=== PATIENT | male | born 1955 | race Caucasian/White ===

== ENCOUNTER 2021-11-12 08:55 | Outpatient (REF) | payer OTHER, SELFPAY ==
[2021-11-12 11:40] LABS: Hemoglobin 16.5 g/dl (14.0-18.0); Mean Corpuscular HGB Conc 33.7 g/dl (31.0-36.0); Mean Corpuscular Hemoglobin 29.9 pg (27.0-33.0); Mean Corpuscular Volume 88.8 fL (80.0-98.0); Mean Platelet Volume 10.2 fL (9.4-12.4); Platelet Count 182 X10*3/uL (160-400); Red Blood Count 5.52 X10*6/uL (4.60-5.80); Red Cell Distribution Width 13.4 % (11.0-16.0); White Blood Count 3.9 X10*3/uL (4.8-10.8)
[2021-11-12 11:52] LABS: Alanine Aminotransferase 26 U/L (0-40); Albumin Level 4.6 g/dL (3.5-5.0); Alkaline Phosphatase 85 U/L (39-117); Anion Gap 11 (12-20); Aspartate Amino Transferase 27 U/L (5-37); Bilirubin Total 3.4 mg/dL (0.0-1.0); Blood Urea Nitrogen 12 mg/dL (9-16); Calcium 9.8 mg/dL (8.4-10.2); Carbon Dioxide 30 mmol/L (22-29); Chloride 104 mmol/L (96-108); Cholesterol 148 mg/dL; Estimated Glomerular Filt Rate > 60; Glucose Fasting 91 mg/dL (60-99); HDL Cholesterol 46 mg/dL; LDL Cholesterol Calculated 83 mg/dl; Potassium 4.5 mmol/L (3.3-5.1); Sodium 140 mmol/L (135-145); Total Protein 7.4 g/dL (6.5-8.0); Triglycerides 95 mg/dL
[2021-11-12 12:18] LABS: TSH reflex Free T4 3.27 uIU/mL (0.32-4.0)
== END 2021-11-12 08:56 | disposition home or self-care (01) ==
LOC: HO.HMGCLDS 08:55
PROVIDERS: Visit Provider Hospitalist
DX: Z00.00 Encounter for general adult medical examination without abnormal findings (principal)
CPT/HCPCS: 36415; 80053; 80061; 84443; 85027

== ENCOUNTER 2022-11-27 07:57 | Outpatient (REF) | payer MEDICARE, OTHER, SELFPAY ==
[2022-11-27 10:43] LABS: Hematocrit 36.9 % (42.0-52.0); Hemoglobin 12.4 g/dl (14.0-18.0); Mean Corpuscular HGB Conc 33.6 g/dl (31.0-36.0); Mean Corpuscular Hemoglobin 29.2 pg (27.0-33.0); Mean Corpuscular Volume 86.8 fL (80.0-98.0); Mean Platelet Volume 9.7 fL (9.4-12.4); Platelet Count 122 X10*3/uL (160-400); Red Blood Count 4.25 X10*6/uL (4.60-5.80); Red Cell Distribution Width 15.9 % (11.0-16.0)
[2022-11-27 10:44] LABS: NRBC Pct Auto 1.5 /100WBC (0.0-0.2)
[2022-11-27 10:59] LABS: Alanine Aminotransferase 14 U/L (0-40); Albumin Level 4.5 g/dL (3.5-5.0); Alkaline Phosphatase 85 U/L (39-117); Anion Gap 13 (12-20); Aspartate Amino Transferase 20 U/L (5-37); Bilirubin Total 2.5 mg/dL (0.0-1.0); Blood Urea Nitrogen 15 mg/dL (9-16); Calcium 9.2 mg/dL (8.4-10.2); Carbon Dioxide 28 mmol/L (22-29); Chloride 104 mmol/L (96-108); Estimated Glomerular Filt Rate > 60; Glucose Fasting 88 mg/dL (60-99); Potassium 4.1 mmol/L (3.3-5.1); Sodium 141 mmol/L (135-145); Total Protein 6.9 g/dL (6.5-8.0)
[2022-11-27 11:35] LABS: SLIDE REVIEW MANUAL DIFF
[2022-11-27 11:50] LABS: Atypical Lymph Absolute Manual 0.1 x10*3/uL; Atypical Lymphs Percent Manual 6 % (0-6); Band Neutrophils Percent 3 % (3-5); Eosinophils Percent Manual 1 % (0-4); Lymphocytes Absolute Manual 0.7 X10*3/uL (1.2-4.9); Lymphocytes Percent Manual 34 % (20-40); Monocytes Percent Manual 2 % (2-11); Neutrophils Absolute Manual 1.1 X10*3/uL (2.0-8.3); Neutrophils Percent Manual 54 % (45-73)
[2022-11-27 11:51] LABS: Nucleated Red Blood Cells 1 /100WBC (0-0)
[2022-11-27 11:53] LABS: Ovalocytes 1+ (5-14) /OIF; Polychromasia 1+ (0-2) /OIF; RBC Morphology NOTED; Schistocytes 1+ (0-2) /OIF; Tear Drop Cells 2+ (3-5) /OIF
[2022-11-27 12:00] LABS: WBC Morphology Comment DYSMORPHIC
[2022-11-27 12:03] LABS: Platelet Estimate SLIGHTLY DECREASED (NORMAL)
[2022-11-27 12:08] LABS: Platelet Morphology Comment NORMAL
== END 2022-11-27 07:58 | disposition home or self-care (01) ==
LOC: HO.10HDL 07:57
PROVIDERS: Visit Provider Nurse Practitioner Family
DX: R10.9 Unspecified abdominal pain (principal)
CPT/HCPCS: 36415; 80053; 85007; 85025; 85027

== ENCOUNTER 2022-12-04 15:07 | Outpatient (REF) | payer MEDICARE, OTHER, SELFPAY ==
[2022-12-04 17:45] LABS: Albumin Level 4.4 g/dL (3.5-5.0); Alkaline Phosphatase 85 U/L (39-117); Bilirubin Direct 0.4 mg/dL (0.0-0.5); Bilirubin Total 2.4 mg/dL (0.0-1.0); C Reactive Protein 0.48 mg/dL (< or = 0.50)
[2022-12-04 18:01] LABS: TSH reflex Free T4 3.37 uIU/mL (0.32-4.0)
[2022-12-07 17:44] LABS: Immunoglobulin A 178 mg/dL (70-320)
[2022-12-07 18:38] LABS: Transglutaminase IgA <1.0 U/mL
[2022-12-11 23:23] LABS: Calprotectin, Fecal 80 mcg/g
== END 2022-12-04 15:08 | disposition home or self-care (01) ==
LOC: HO.LAB 15:07
PROVIDERS: PCP Hospitalist; Visit Provider Internal Medicine
DX: R10.9 Unspecified abdominal pain (principal); R19.7 Diarrhea, unspecified; R17 Unspecified jaundice
CPT/HCPCS: 36415; 82040; 82247; 82248; 82784; 83993; 84075; 84443; 86140; 86364; 99202

== ENCOUNTER 2023-02-11 06:47 | Day surgery (SDC) | payer MEDICARE, OTHER, SELFPAY ==
[2023-02-09 11:09] VITALS: BMI 24.1
--- NOTE | 2023-02-10 08:54 | HO.ANESPROP2 ---
Documented by User: Palma Ramirez NP 02/10/23 08:55 HPI - Anesthesia Eval Consult details Narrative: 67yo M for Upper Endoscopy [facility] Active Problems Active Problems: All Active Problems (Updated 12/04/22 @ 15:42 by Kim Holman MD) Diarrhea (Acute) Anemia (Acute) Abdominal pain (Acute) Elevated bilirubin (Acute) Normal physical exam (Acute) Hairy cell leukemia (Acute) Past Medical History Medical History Hairy cell leukemia Family History Family History Mother Diabetes Surgical History Surgical History Hx of colonoscopy Social History Social History Household Members: Spouse Housing: House Alcohol intake: never Patient Tobacco Use Status: Never used Tobacco Current occupational status: employed Current occupation: [employer] Allergies Allergy/AdvReac Type Severity Reaction Status Date / Time No Known Allergies Allergy Verified 12/04/22 15:31 Exam Exam Date and Time: February 10, 2023 0854 Height,Weight and Vital Signs: Height 5 ft 8 in Weight 71.979 kg Pertinent Lab Results Pertinent Lab Results: Laboratory Tests 11/27/22 11/27/22 08:00 08:00 WBC 2.0 L Hgb 12.4 L D Hct 36.9 L D Plt Count 122 L D Sodium 141 Potassium 4.1 Chloride 104 Carbon Dioxide 28 BUN 15 Creatinine 0.77 Assessment and Plan Assessment Anesthesia Assessment: Chart Reviewed Documented by User: Kelsey Alcazar MD 02/11/23 14:26 PMFSH Past Medical History Medical History Hairy cell leukemia Family History Family History Mother Diabetes Family history of problems with anesthesia: No Surgical History Surgical History Hx of colonoscopy History of Problems with Anesthesia: No Social History Social History Household Members: Spouse Housing: House Alcohol intake: never Patient Tobacco Use Status: Never used Tobacco Current occupational status: employed Current occupation: [employer] Allergies Allergy/AdvReac Type Severity Reaction Status Date / Time No Known Allergies Allergy Verified 12/04/22 15:31 Exam Airway Mallampati Class: II TM Dist: >3cm Neck ROM: Full Loose/Missing/Broken Teeth: Yes and Lower Heart: rr Lungs: cta Assessment and Plan Assessment Anesthesia Assessment: Anesthesia Plan Discussed Final Anesthetic Review Family History of Problems with Anesthesia: No History of Problems with Anesthesia: No NPO: Yes ASA Class: III Final Preanesthetic Review: No Changes in Pt Med Stat, Meds/Allgs Chart Reviewed, Consent Obtained/Reviewed and Anes Risks/Benef Reviewed Patient Risk: Low Procedure Risk: Low Anesthetic Plan Anesthetic Plan: MAC: Disposition: Standard PACU
[2023-02-11 07:08] VITALS: BP 134/62; PULSE 69; RESP 18; TEMP 36.2; O2SAT 100
[2023-02-11 07:09] VITALS: BMI 25.8
[2023-02-11] MEDS: Lactated Ringers 1,000 ML 100 ML IVCONT (07:31)
--- NOTE | 2023-02-11 07:43 | MHC.SHP ---
Pre-Procedural Eval Section A Date of Service: 02/11/23 Section B Chief Complaint: ABd pain Details of Present Illness: Medical History Hairy cell leukemia Surgical History Hx of colonoscopy Family History Mother Diabetes Present Medications: see Short Stay Collaborative assessment Allergies: Allergies Allergy/AdvReac Type Severity Reaction Status Date / Time No Known Allergies Allergy Verified 12/04/22 15:31 Review of Systems Review of Systems Comment: Ten point ROS unchanged from before Exam Exam Comment: Gen appear: No acute distress HEENT: no icterus Chest: No overt resp distress Abd: soft, nontender, nondistended Psych: Stable affect, answering questions appropriately Neuro: A/Ox3 noted to move all extremities spontaneously Ext: no peripheral edema Plan Diagnosis/Plan: Unchanged I have reviewed the history and physical and performed a pertinent physical examination on my patient. No changes have occurred unless specified. Time Spent With Patient Time: Total time managing care of this patient today ____ minutes.
--- NOTE | 2023-02-11 08:14 | P.OP_ITS ---
Operative Note Operative Note Date of Service: 02/11/23 Narrative: Procedure: Esophagogastroduodenoscopy Endoscopist: Kim Holman MD Indication: Abd pain Anesthesia Provider: Dr Kelsey Alcazar Anesthesia Type: MAC ?? EGD Procedure:?? The procedure, indications, preparation and potential complications were reviewed with the patient, who indicated understanding and gave written informed consent to proceed. entry level installation technician assisted with consent. A physical exam was performed. The endoscope was introduced through the mouth, and advanced to the second part of duodenum. The mucosa was carefully examined on slow withdrawal of the endoscope. The patient tolerated the procedure well. There were no immediate complications.? ? EGD Findings:? * Esophagus:? Normal mucosa noted in the entire esophagus. The Z line was at 38 cm. * Stomach:? Abnormal mucosa in the body of the stomach along greater curvature. Targeted biopsies were obtained from this area using jumbo cold forceps. Random gastric biopsies were taken to rule out H Pylori infection. * Duodenum:? Normal mucosa was noted in the whole of the examined duodenum. Cold forceps biopsies were taken from duodenal bulb and second portion of the duodenum to rule out celiac disease. ? EGD Impressions:? * Normal esophagus * Abnormal stomach mucosa (biopsy) * Normal duodenum (biopsy) ?? Recommendations:?? * Follow biopsy results. Our office will call or send a letter with results within 7-10 days. * Pt also appears jaundiced on exam today. Liver panel ordered. * We will also clarify the status of hairy cell leukemia with the daughter td given abnormal smear 3 months ago. Above has been reviewed with the patient.
[2023-02-11 08:59] VITALS: BP 121/76; PULSE 67; RESP 16; TEMP 36.1; O2SAT 98
[2023-02-11 09:14] VITALS: BP 132/78; PULSE 64; RESP 16; TEMP 36.6; O2SAT 97
[2023-02-11 09:49] LABS: Alanine Aminotransferase 19 U/L (0-40); Albumin Level 3.7 g/dL (3.5-5.0); Alkaline Phosphatase 71 U/L (39-117); Aspartate Amino Transferase 23 U/L (5-37); Bilirubin Direct 0.6 mg/dL (0.0-0.5); Bilirubin Total 2.5 mg/dL (0.0-1.0); Total Protein 5.6 g/dL (6.5-8.0)
== END 2023-02-11 09:35 | disposition home or self-care (01) ==
PROVIDERS: PCP Hospitalist; Visit Provider Internal Medicine
PROC: 0DJ08ZZ Inspection of Upper Intestinal Tract, Via Natural or Artificial Opening Endoscopic (ICD-10-PCS; CPT 43235; principal; 2023-02-11 08:20)
DX: R10.9 Unspecified abdominal pain (principal); K29.70 Gastritis, unspecified, without bleeding; B96.81 Helicobacter pylori [H. pylori] as the cause of diseases classified elsewhere; C91.40 Hairy cell leukemia not having achieved remission; D64.9 Anemia, unspecified; R19.7 Diarrhea, unspecified; E80.7 Disorder of bilirubin metabolism, unspecified; Z79.899 Other long term (current) drug therapy
CPT/HCPCS: 43239; 36415; 80076; 88305; 88342

== ENCOUNTER → 2023-03-03 14:58 | Outpatient (BNVA) | payer MEDICARE, OTHER, SELFPAY | PROVIDERS: Visit Provider Internal Medicine | DX: R10.9 Unspecified abdominal pain (principal); Z98.890 Other specified postprocedural states | CPT/HCPCS: 99212 ==

== ENCOUNTER 2024-09-19 09:56 | Outpatient (REF) | payer MEDICARE, OTHER, SELFPAY | END 2024-09-19 09:57 | disposition home or self-care (01) | LOC: HO.BBR 09:56 | PROVIDERS: PCP Family Medicine Geriatric Medicine; Visit Provider Internal Medicine | DX: D45 Polycythemia vera (principal) | CPT/HCPCS: 85014; 85018; 99195 ==

== ENCOUNTER 2024-12-20 09:58 | Outpatient (REF) | payer MEDICARE, SELFPAY ==
--- OUTSIDE RECORDS SUMMARY | 2024-12-20 11:25 | XMS_ITS | Clinical Summary ---
Author Organization [facility] Address [address] [place] [id number] Care Team Providers Care Rubber Press Tender Name Role Phone Leila Rousseau Primary Care Provider [phone] Allergies No known active allergies Medications Medication Sig Dispensed Refills Start Date End Date Status ibuprofen 600 MG tablet Take 1 tablet (600 mg total) by mouth 3 (three) times a day as needed. 0 03/29/2022 Active albuterol 108 (90 Base) MCG/ACT inhaler Inhale 2 puffs into the lungs every 6 (six) hours as needed for wheezing. 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 not having achieved remissio n 03/28/2019 Pancytopenia 12/30/2018 Hyperbilirubinemia 12/30/2018 Anemia complicating neoplastic disease 9 Social History Tobacco Use Types Packs/Day Years Used Date Smoking Tobacco: Never Smokeless Tobacco: Never Alcohol Use Standard Drinks/Week Comments Yes 0 (1 standard drink = 0.6 oz pur e alcohol) Socially Sex and Gender Information Value Date Recorded Sex Assigned at Male 08/11/2023 4:03 PM EST Gender Identity Not on file Sexual Orientation Not on file Job Start Date Occupation Industry Not on file Not on file Not on file Last Filed Vital Signs Vital Sign Reading Time Taken Comments Blood Pressure 132/70 12/23/2023 9:20 AM EDT Pulse 58 12/23/2023 9:20 AM EDT Temperature 36.4 ??C (97.5 ??F) 12/23/2023 9:20 AM ED T Respiratory Rate 18 09/24/2023 8:00 AM EST Oxygen Saturation 98% 12/23/2023 9:20 AM EDT Inhaled Oxygen Concentration - - Weight 70.9 kg (156 lb 6.4 oz) 12/23/2023 9:20 A M EDT Height 172.7 cm (5' 8 ) 12/23/2023 9:20 AM EDT Body Mass Index 23.78 12/23/2023 9:20 AM EDT Plan of Treatment Health Maintenance Due Date Last Done Comments Hepatitis C Screening 1956 COVID-19 Vaccine (#1) 1961 Pneumococcal Vaccine (1 of 2 - PCV) 1962 Depression Screening 1968 Preventative Health Evaluation 1974 DTap / Tdap / Td (1 - Tdap) 12/08/1975 Shingrix-Zoster Vaccine (1 o f 2) 12/08/1975 Colon Cancer Screening (Colonoscopy) 2001 RSV Adult > 60+ Yrs or (1 - Risk 60-74 years 1-dose series) 2016 Fall Risk Assessment 2021 Influenza Vaccine (#1) 2024 4, 06/06/2010 Hepatitis B Vaccines Aged Out No long er eligible based on patient's age to complete this topic RSV Ped < 20 months Aged Out No longe r eligible based on patient's age to complete this topic Care Teams Rubber Press Tender Relationship Specialty Start Date End Date Leila Rousseau DO [address] [address] PCP - General Family Medicine 12/15/18
--- OUTSIDE RECORDS SUMMARY | 2024-12-20 11:25 | XMS_ITS | Clinical Summary ---
Author Organization [facility] Address [address] [place] [address] Phone Care Team Providers Care [employer] Name Role Phone Leila Rousseau Primary Care Provider Allergies No known active allergies Medications albuterol HFA (PROAIR HFA ; PROVENTIL HFA ; VENTOLIN HFA) 90 mcg/actuation inhaler Inhale 2 puffs by mouth every 6 (six) hours if needed for wheezing. 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, in carline ssion ([facility] V24, [facility] V28) 03/28/2019 Anemia complicating neoplastic disease 9 Hyperbilirubinemia 12/30/2018 Pancytopenia ([facility] V24, [facility] V28) 12/31/19 19 Social History Tobacco Use Types Packs/Day Years Used Date Smoking Tobacco: Never Smokeless Tobacco: Never Tobacco Cessation:Counseling Given: Not Answered Alcohol Use Standard Drinks/Week Comments Yes 0 (1 standard drink = 0.6 oz pur e alcohol) Sex and Gender Information Value Date Recorded Sex Assigned at Not on file Legal Sex Male 10:22 PM EST Gender Identity Not on file Sexual Orientation Not on file Obstetrics History Last Filed Vital Signs Vital Sign Reading Time Taken Comments Blood Pressure 129/72 08/28/2024 3:07 PM EST Pulse 64 08/28/2024 3:07 PM EST Temperature 36.3 ??C (97.4 ??F) 08/28/2024 3:07 PM ES T Respiratory Rate - - Oxygen Saturation 99% 08/28/2024 3:07 PM EST Inhaled Oxygen Concentration - - Weight 70.6 kg (155 lb 9.6 oz) 08/28/2024 3:07 P M EST Height 172.7 cm (5' 8 ) 12/23/2023 9:20 AM EDT Body Mass Index 23.66 12/23/2023 9:20 AM EDT Plan of Treatment Upcoming Encounters Date Type Department Care Team (Late st Contact Info) Description 01/04/2025 3:30 PM EDT Office Visit [facility] Hematology Oncology [address] [place] [address] Delmi-Shameka Guerra MD [address] [place] [address] Health Maintenance Due Date Last Done Comments Hepatitis A Vaccines (1 of 2 - Risk 2-dose series) 12/08/1975 Pneumococcal Vaccine: 50+ Years (1 of 2 - PCV) 12/08/1975 Zoster Vaccines (1 of 2) 12/08/1975 DTaP,Tdap,and Td Vaccines (2 - Td or Tdap) 09/18/2020 09/18/2010 Cholesterol Screening (Lipid Panel) 08/13/2022 Colorectal Cancer Screening: Colonoscopy 08/13/2022 Depression Screening 08/13/2022 Falls Risk Assessment 08/13/2022 Hepatitis C Screening 08/13/2022 Medicare Annual Wellness Visit 08/13/2022 Social Influencers of Health Screening 08/13/2022 COVID-19 Vaccine ( season) 2024 09/17/2021, 01/07/2021, 12/17/2020 RSV Immunization Adult Patients (1 - 1-dose 75+ series) 12/08/2031 Influenza Vaccine Completed 09/07/2024, , 10/25/2022, Additional history exists HIB Vaccines Aged Out No longer eligi ble based on patient's age to complete this topic HPV Vaccines Aged Out No longer eligi ble based on patient's age to complete this topic Hepatitis B Vaccines Aged Out No long er eligible based on patient's age to complete this topic IPV Vaccines Aged Out No longer eligi ble based on patient's age to complete this topic MMR Vaccines Aged Out No longer eligi ble based on patient's age to complete this topic Meningococcal ACWY Vaccine Aged Out N o longer eligible based on patient's age to complete this topic Meningococcal B Vaccine Aged Out No l onger eligible based on patient's age to complete this topic RSV Immunization Patients Under 20 months Aged Out No longer eligible based on patient's age to complete this topic Varicella Vaccines Aged Out No longer eligible based on patient's age to complete this topic Procedures Procedure Name Priority Date/Time Associated Diagnosis Comments CBC WITH AUTO DIFFERENTIAL Routine 12/18/2024 1:31 PM EDT Hairy cell leukemia, in remission (CMS/HCC V24, CMS/HCC V28) LACTATE DEHYDROGENASE Routine 12/18/2024 1:31 PM EDT Hairy cell leukemia, in remission (CMS/HCC V24, CMS/HCC V28) CBC AND DIFFERENTIAL Routine 12/18/2024 1:31 PM EDT Hairy cell leukemia, in remission (CMS/HCC V24, CMS/HCC V28) COMPREHENSIVE METABOLIC PANEL Routine 12/18/2024 1:31 PM EDT Hairy cell leukemia, in remission (CMS/HCC V24, CMS/HCC V28) PROSTATE SPECIFIC ANTIGEN DIAGNOSTIC Routine 12/18/2024 1:31 PM EDT Elevated PSA from Last 3 Months Results * Prostate specific antigen diagnostic (12/18/2024 1:31 PM EDT) PSA 1.60 0.00 - 4.00 ng/mL LAB CHEMISTRY METHOD 12/18/2024 5:57 PM EDT [facility] Blood Venous blood specimen / Unknown Venipuncture / Unknown 12/18/2024 1:31 PM EDT 12/18/2024 4:37 PM EDT Narrative [facility] - 12/18/2024 5:57 PM EDT The Siemens Advia Centaur Chemiluminescent Immunoassay is used. Results obtained with different assay methods or kits cannot be used interchangeably. Results cannot be interpreted as absolute evidence of the presence or absence of malignant disease. us Shameka oDver MD LAB BLOOD ORDERABLE S Final Result [facility] [address] [place] [address], * (ABNORMAL) CBC auto differential (12/18/2024 1:31 PM EDT) WBC 6.2 4.8 - 10.8 K/mcL LAB HEMETOLOGY METHOD 12/18/2024 4:54 PM EDT [facility] RBC 5.90(H) 4.50 - 5.50 M/mcL LAB HEMETOLOGY METHOD 12/18/2024 4:54 PM EDT [facility] Hemoglobin 17.4 13.5 - 17.5 g/dL LAB HEMETOLOGY METHOD 12/18/2024 4:54 PM EDT [facility] Hematocrit 52.4 42.0 - 54.0 % LAB HEMETOLOGY METHOD 12/18/2024 4:54 PM EDT [facility] MCV 89.0 79.0 - 98.0 FL LAB HEMETOLOGY METHOD 12/18/2024 4:54 PM EDT [facility] MCH 29.5 27.0 - 32.0 pcg LAB HEMETOLOGY METHOD 12/18/2024 4:54 PM EDT [facility] MCHC 33.2 32.0 - 37.0 g/dL LAB HEMETOLOGY METHOD 12/18/2024 4:54 PM EDT [facility] RDW 13.2 11.0 - 15.0 % LAB HEMETOLOGY METHOD 12/18/2024 4:54 PM EDT [facility] Platelets 255 130 - 400 K/mcL LAB [facility]OLOGY [facility] MPV 10.4 7.0 - 11.0 FL LAB HEMETOLOGY METHOD [facility]24 [facility] NRBC 0.0 <1.0 % LAB HEMETOLOGY METHOD 12/18/2024 4:54 PM EDT [facility] NRBC Absolute 0.00 <0.10 K/mcL LAB HEMETOLOGY METHOD [facility]24 4[facility] Neutrophils Relative 68.2 % LAB HEMETOLOGY METHOD 12/18/2024 4:54 PM [facility] Lymphocytes Relative 18.8 % LAB HEMETOLOGY METHOD 12/18/2024 4:54 PM EDT [facility] Monocytes Relative 8.5 % LAB HEMETOLOGY METHOD 12/18[facility]2024 4:[facility] Eosinophils Relative 2.7 % LAB HEMETOLOGY METHOD 12/18/2024 4:54 PM [facility] Basophils Relative 1.3 % LAB HEMETOLOGY METHOD 12/18/2024 4:54 PM [facility] Immature Granulocytes Relative 0.5 % LAB HEMETOLOGY METHOD [facility]2024 4:[facility] Neutrophils Absolute 4.25 1.50 - 7.00 K/mcL LAB HEMETOLOGY METHOD 12/18/2024 4:[facility] Lymphocytes Absolute 1.17 1.00 - 5.00 K/mcL LAB HEMETOLOGY METHOD 12/18/2024 4:[facility] Monocytes Absolute 0.53 0.20 - 1.00 K/mcL LAB HEMETOLOGY METHOD 12/18/2024 4:54 PM EDT [facility] Eosinophils Absolute 0.17 0.00 - 0.50 K/[facility] LAB HEMETOLOGY METHOD 12/18/2024 4:54 PM EDT [facility] Basophils Absolute 0.08 0.00 - 0.20 K/[facility] LAB HEMETOLOGY METHOD 12/18/2024 4:54 PM EDT [facility] Immature Granulocytes Absolute 0.03 0.00 - 0.03 /[facility] LAB HEMETOLOGY METHOD 12/18/2024 4:54 PM EDT [facility] Blood Venous blood specimen / Unknown Venipuncture / Unknown 12/18/2024 1:31 PM EDT 12/18/2024 4:37 PM EDT us Shameka Dover MD LAB BLOOD ORDERABLE S Final Result Performing Organization Address [facility]/ZIP Co de Phone Number [facility] [address] [place] [address], [place] [phone] * Lactate dehydrogenase (12/18/2024 1:31 PM EDT) [facility] LDH 181 120 - 246 unit/L LAB CHEMISTRY METHOD 12/18/2024 5:26 PM EDT [facility] Blood Venous blood specimen / Unknown Venipuncture / Unknown 12/18/2024 1:31 PM EDT 12/18/2024 4:37 PM EDT us Shameka Dover MD LAB BLOOD ORDERABLE S Final Result Performing Organization Address City/[facility]/ZIP Co de Phone Number [facility] [address] [place] [address], [place] [phone] * (ABNORMAL) Comprehensive metabolic panel (12/18/2024 1:31 PM EDT) Sodium 139 133 - 145 mmol/L LAB CHEMISTRY METHOD 12/18/2024 5:26 PM [facility] Potassium 4.2 3.5 - 5.5 mmol/L LAB CHEMISTRY METHOD 12/18/2024 5:26 PM [facility] Chloride 103 96 - 110 mmol/L LAB CHEMISTRY METHOD 12/18/2024 5:26 PM [facility] CO2 31 21 - 32 mmol/L LAB CHEMISTRY METHOD 12/18/2024 5:26 PM [facility] Anion Gap 5 3 - 11 LAB CHEMISTRY METHOD 12/18/2024 5:26 PM [facility] Glucose 96 70 - 100 mg/dL LAB CHEMISTRY METHOD 12/18/2024 5:26 PM [facility] BUN 11 5 - 25 mg/dL LAB CHEMISTRY METHOD 12/18/2024 5:26 PM [facility] Creatinine 0.74 0.70 - 1.30 mg/dL LAB CHEMISTRY METHOD 12/18/2024 5:26 PM [facility] eGFR 99 >=60 mL/min/1. 73m2 LAB CHEMISTRY METHOD 12/18/2024 5:26 PM [facility] Comment:Calculation based on the??Chronic Kidney Disease Epidemiology Collaboration (CKD-EPI) equation refit??without adjustment for race. BUN/Creatinine Ratio 14.9 LAB CHEMISTRY METHOD 12/18/2024 5:26 PM [facility] Calcium 9.7 8.5 - 10.5 mg/dL LAB CHEMISTRY METHOD 12/18/2024 5:26 PM [facility] AST (SGOT) 23 10 - 42 unit/L LAB CHEMISTRY METHOD 12/18/2024 5:26 PM [facility] ALT (SGPT) 25 10 - 60 unit/L LAB CHEMISTRY METHOD 12/18/2024 5:26 PM [facility] Alkaline Phosphatase 125(H) 42 - 121 unit/L LAB CHEMISTRY METHOD 12/18/2024 5:26 PM EDT [facility] Total Protein 7.1 6.0 - 8.0 g/dL LAB CHEMISTRY METHOD 12/18/2024 5:26 PM EDT [facility] Albumin 4.2 3.2 - 5.0 g/dL LAB CHEMISTRY METHOD 12/18/2024 5:26 PM EDT [facility] Total Bilirubin 2.8(H) 0.0 - 1.4 mg/dL LAB CHEMISTRY METHOD 12/18/2024 5:26 PM EDT [facility] Blood Venous blood specimen / Unknown Venipuncture / Unknown 12/18/2024 1:31 PM EDT 12/18/2024 4:37 PM EDT Subramrohan Dover MD LAB BLOOD ORDERABLE S Final Result [facility] [address] [place] [address], from Last 3 Months Insurance [employer] MED[employer]ARE Care Teams [employer] Relationship Specialty Start Date End Date Leila Rousseau DO [address] [place], [place] PCP - General Family Medicine 12/15/18
--- OUTSIDE RECORDS SUMMARY | 2024-12-20 11:25 | XMS_ITS ---
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 Past Plans ONCOLOGY TREATMENT Plan Name Start Date Discontinue Date Treatment Medications Discontinue Reason Plan Provider Cycles [facility] OP RITUXIMAB (IV/SC) WEEKLY X4 023 11/10/2023 acetaminophen (TYLENOL)albuterol (PROVENTIL)dexamethasone (DECADRON) IVPB in 50 mLdiphenhydrAMINE (BENADRYL)EPINEPHrinefam otidine (PF) (PEPCID)hydrocortisone (SOLU-CORTEF) IVmeperidine (DEMEROL) 25 MG/MLriTUXimab-pvvr (RUXIENCE) infusion (Outpatient record)Saline Flush 0.9 %sodium chloride (NS) 0.9 %sodium chloride 0.9% bolus (NS) Therapy Complete Shameka Amado MD 2 of 2 cycles started [facility] OP CLADRIBINE (2h infusion) x 5 days 023 07/16/2023 albuterol (PROVENTIL)cladribine (LEUSTATIN) chemo infusiondiphenhydrAMINE (BENADRYL)EPINEPHrineEPI NEPHrine 0.3 MG/0.3MLfamotidine (PF) (PEPCID)hydrocortisone (SOLU-CORTEF) IVHydrocortisone Sod Suc (PF) (Solu-CORTEF)meperidine (DEMEROL) 25 MG/MLSaline Flush 0.9 %sodium chloride (NS) 0.9 %sodium chloride 0.9% bolus (NS) Therapy Complete Shameka Amado MD 1 of 1 cycle started Radiation Treatments * No radiation treatments are documented for this patient in [facility]. Treatments may have been administered in another system.
== END 2024-12-20 09:59 | disposition home or self-care (01) ==
LOC: HO.BBR 09:58
PROVIDERS: Visit Provider Internal Medicine
DX: D45 Polycythemia vera (principal)
CPT/HCPCS: 85014; 85018; 99195

== ENCOUNTER 2025-03-06 12:52 | Outpatient (REF) | payer MEDICARE, SELFPAY ==
--- OUTSIDE RECORDS SUMMARY | 2025-03-06 13:50 | XMS_ITS | Clinical Summary ---
Author Organization [facility] Address [address] [place] [id number] Care Team Providers Care Religious Education Director Name Role Phone Leila Rousseau Primary Care Provider Allergies No known active allergies Medications Medication [...] 58 12/23/2023 9:20 AM EDT Temperature 36.4 C (97.5 F) 12/23/2023 9:20 AM EDT Respiratory Rate 18 09/24/2023 8:00 AM EST [...] 2016 Fall Risk Assessment 2021 Influenza Vaccine (Season Ended) 2025 07/07/2014, 06/06/2010 Hepatitis B Vaccines Aged Out No long er eligible based on patient's age to complete this topic RSV Ped < 20 months Aged Out No longe r eligible based on patient's age to complete this topic Care Teams Religious Education Director Relationship Specialty Start Date End Date Leila Rousseau DO [address] [id number] PCP - General Family Medicine 12/15/18
== END 2025-03-06 12:53 | disposition home or self-care (01) ==
LOC: HO.BBR 12:52
PROVIDERS: PCP Family Medicine Geriatric Medicine; Visit Provider Internal Medicine
DX: D45 Polycythemia vera (principal)
CPT/HCPCS: 85018; 99195

== ENCOUNTER 2025-05-08 10:03 | Outpatient (REF) | payer MEDICARE, SELFPAY ==
--- OUTSIDE RECORDS SUMMARY | 2025-05-08 11:25 | XMS_ITS ---
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 Past Plans ONCOLOGY TREATMENT Plan Name Start Date Discontinue Date Treatment Medications Discontinue Reason Plan Provider Cycles [facility] OP RITUXIMAB (IV/SC) WEEKLY X4 023 11/10/2023 acetaminophen (TYLENOL)albuterol (PROVENTIL)dexamethasone (DECADRON) IVPB in 50 mLdiphenhydrAMINE (BENADRYL)EPINEPHrinefam otidine (PF) (PEPCID)hydrocortisone (SOLU-CORTEF) IVmeperidine (DEMEROL) 25 MG/MLriTUXimab-pvvr (RUXIENCE) infusion (Outpatient record)Saline Flush 0.9 %sodium chloride (NS) 0.9 %sodium chloride 0.9% bolus (NS) Therapy Complete Shameka Amado MD 2 of 2 cycles started [facility] OP CLADRIBINE (2h infusion) x 5 days 023 07/16/2023 albuterol (PROVENTIL)cladribine (LEUSTATIN) chemo infusiondiphenhydrAMINE (BENADRYL)EPINEPHrineEPI NEPHrine 0.3 MG/0.3MLfamotidine (PF) (PEPCID)hydrocortisone (SOLU-CORTEF) IVHydrocortisone Sod Suc (PF) (Solu-CORTEF)meperidine (DEMEROL) 25 MG/MLSaline Flush 0.9 %sodium chloride (NS) 0.9 %sodium chloride 0.9% bolus (NS) Therapy Complete Shameka Amado MD 1 of 1 cycle started Radiation Treatments * No radiation treatments are documented for this patient in [facility]. Treatments may have been administered in another system.
--- OUTSIDE RECORDS SUMMARY | 2025-05-08 11:25 | XMS_ITS | Clinical Summary ---
Author Organization [facility] Address [address] [place] [address] Phone Care Team Providers Care Package Checker Name Role Phone RousseauLeila Primary Care Provider Allergies No known active [...] 05/18/2019 Hairy cell leukemia, in carline ssion ([facility] V24, [facility] V28) 03/28/2019 Anemia complicating neoplastic disease 9 Hyperbilirubinemia 12/30/2018 Pancytopenia ([facility] V24, [facility] V28) 12/31/19 19 Encounters Date Type Department Care Team Description 04/09/2025 3:00 PM EDT Consult Gastroenterology [facility] 175 [facility] [address] [phone] Guadalupe Alvarado NP Epigastric abdominal pain (Primary Dx); Abdominal bloating; History of colon polyps 04/09/2025 Telephone Gastroenterology [facility] 175 [facility] 175 [facility] [address] [place] [phone] Guadalupe Alvarado NP from Last 3 Months Social History Tobacco Use Types Packs/Day Years [...] Sign Reading Time Taken Comments Blood Pressure 136/70 04/09/2025 2:58 PM EDT Pulse 71 04/09/2025 2:58 PM EDT Temperature 36.2 C (97.2 F) 01/04/2025 3:32 PM EDT Respiratory Rate - - Oxygen Saturation 96% 04/09/2025 2:58 PM EDT Inhaled Oxygen Concentration - - Weight 70.9 kg (156 lb 6.4 oz) 04/09/2025 2:58 P M EDT Height 175.3 cm (5' 9 ) 04/09/2025 2:58 PM EDT Body Mass Index 23.1 04/09/2025 2:58 PM EDT Plan of Treatment Upcoming Encounters Date Type Department Care Team (Late st Contact Info) Description 05/10/2025 3:00 PM EDT Office Visit [facility] Hematology Oncology [address] [place] [phone] Delmi-Shameka Guerra MD [address] [place] [address] Health Maintenance Due Date Last Done Comments Hepatitis A Vaccines (1 of 2 - Risk 2-dose series) 12/08/1975 Pneumococcal Vaccine: 50+ Years (1 of 2 - PCV) 12/08/1975 Zoster Vaccines (1 of 2) 12/08/1975 DTaP,Tdap,and Td Vaccines (2 - Td or Tdap) 09/18/2020 09/18/2010 Cholesterol Screening (Lipid Panel) 08/13/2022 Colorectal Cancer Screening: Colonoscopy 08/13/2022 Falls Risk Assessment 08/13/2022 Hepatitis C Screening 08/13/2022 Medicare Annual Wellness Visit 08/13/2022 Social Influencers of Health Screening 08/13/2022 Depression Screening 09/06/2024 COVID-19 Vaccine ( season) 2025 09/17/2021, 01/07/2021, 12/17/2020 Influenza Vaccine (#1) 2025 , 08/15/2023, 10/25/2022, Additional history exists RSV Immunization Adult Patients (1 - 1-dose 75+ series) 12/08/2031 HIB Vaccines Aged Out No longer eligi [...] on patient's age to complete this topic Insurance [place] [address] Care Teams Package Checker Relationship Specialty Start Date End Date Leila Rousseau DO [address] [place], [place] PCP - General Family Medicine 12/15/18
--- OUTSIDE RECORDS SUMMARY | 2025-05-08 11:25 | XMS_ITS | Clinical Summary ---
Author Organization [facility] Address [address] [place] [id number] Care Team Providers Care Wolf Hunter Name Role Phone Leila Rousseau Primary Care Provider [phone] Allergies No known active allergies Medications Medication [...] Fall Risk Assessment 2021 Influenza Vaccine (#1) 2025 4, 06/06/2010 Hepatitis B Vaccines Aged Out No long er eligible based on patient's age to complete this topic RSV Ped < 20 months Aged Out No longe r eligible based on patient's age to complete this topic Care Teams Wolf Hunter Relationship Specialty Start Date End Date Leila Rousseau DO [address] [phone] PCP - General Family Medicine 12/15/18
== END 2025-05-08 10:04 | disposition home or self-care (01) ==
LOC: HO.BBR 10:03
PROVIDERS: PCP Family Medicine Geriatric Medicine; Visit Provider Internal Medicine
DX: D45 Polycythemia vera (principal)
CPT/HCPCS: 85018; 99195

== ENCOUNTER 2025-07-18 10:54 | Outpatient (REF) | payer MEDICARE, SELFPAY | END 2025-07-18 10:55 | disposition home or self-care (01) | LOC: HO.BBR 10:54 | PROVIDERS: PCP Family Medicine Geriatric Medicine; Visit Provider Internal Medicine | DX: D45 Polycythemia vera (principal) | CPT/HCPCS: 85018; 99195 ==